=== PATIENT | male | born 1995 | race African-American/Black ===

== ENCOUNTER → 2020-06-22 09:32 | Outpatient (CLI) | payer OTHER, SELFPAY ==
[2020-06-22 10:39] LABS: COVID19 -Nasal RAPID Negative (Negative)
== END ==
PROVIDERS: Visit Provider Surgery
DX: Z01.812 Encounter for preprocedural laboratory examination (principal); Z20.828 Contact with and (suspected) exposure to other viral communicable diseases
CPT/HCPCS: 87635; 99211

== ENCOUNTER 2020-06-23 08:09 | Day surgery (SDC) | payer OTHER, SELFPAY ==
[2020-05-28 13:47] VITALS: BMI 29.1
--- NOTE | 2020-06-23 | PATH_ITS ---
[facility] Accession Number: [id number] . 01 Material submitted: . back - LEFT LOWER BACK . 01 Clinical history: . EXCISION OF LEFT LOWER BACK MASS . 01 Diagnosis: Left Lower Back, Excision: Mature fibroadipose tissue, consistent with lipoma. MRV 06/25/2020 1003 Local . 01 Electronically signed: . Mamadou Gerber MD, Dermatopathologist NPI- [id number] . 01 Gross description: . Received in formalin and labeled with left lower back mass are three pieces of guzman adipose tissue measuring 7.3 x 2.3 x 1.0 to 2.8 x 2.4 x 1.2 cm. All three pieces of tissue are inked, serially sectioned, and submitted in 12 computer help desk representative sections in cassettes A1-A4. Cassettes A1-A4 each contain three slices. (SELINA:[id number]) /MRV 06/24/2020 1511 Local . 01 Pathologist provided ICD-10: D17.9 . 01 CPT . 020312 Performed at: [address] [facility] [address], [place], [place] [id number] MD Conner Frey MD Phone: [phone]
[2020-06-23] MEDS: LACTATED RINGERS 1,000 ML 42 ML IV (08:21)
[2020-06-23 08:27] VITALS: BMI 28.9
--- NOTE | 2020-06-23 08:33 | PM.HP.1 ---
History of Present Illness History of Present Illness Date Patient Seen: 06/23/20 Time Patient Seen: 08:33 Chief complaint: EXCISION OF LEFT LOWER BACK MASS Narrative: This is a 25-year-old man who has had a mass on his left lower back which has been increasing over the past 1 year. It causes him pain and discomfort. He is concerned about the neoplastic potential, and the fact that it seems to be continually enlarging and causing him more pain and discomfort. When he sits or leans against a chair he feels pressure on that area. He has a very physical job, and continued to have discomfort in paresthesias in this area of his back, causing some hesitancy. He denies any radiating pain down his leg or buttock. It has not drained or bled. He has not had any other similar lesions in the past. Nothing has changed with the mass since I saw him in clinic in April. ROS: Positive for joint pain. Thirteen system review is otherwise negative other than as mentioned below and in HPI. PE GENERAL: Well groomed and cooperative. Appears stated age. Answers questions promptly and appropriately. Vital signs noted. HENT: Normocephalic, atraumatic. Hearing intact. EYES: Conjunctiva pink, sclera white, no periorbital swelling. CARDIOVASCULAR: Regular rate. No pedal edema. RESPIRATORY: Non-tachypneic, breathing comfortably on room air. GASTROINTESTINAL: Abdomen soft and non-distended GENITALURINARY: No flank tenderness. MUSCULOSKELETAL: Equal tone and mass bilaterally. Left lower back deep nodular mass, which is tender on palpation. No similar structure on the right side. SKIN: Warm, dry, soft, appropriate color for ethnicity. No other lesions, rashes, or wounds. NEURO: Alert and Oriented X 3. No gross sensory deficits, or cognitive issues. PSYCH: Appropriate affect and mood. Patient History Family & Social History Family History Grandfather Cancer Social History: household members significant other Tobacco & Substance use: Smoking Status Never smoker alcohol intake current Meds Home Medications and Allergies Home Medications Medication Instructions Recorded Confirmed Type biotin 5 mg capsule 5 mg PO DAILY 05/13/20 05/28/20 History omega-3 fatty acids 1,000 mg 1,000 mg PO DAILY 05/13/20 05/28/20 History capsule Allergies Allergy/AdvReac Type Severity Reaction Status Date / Time No Known Drug Allergies Allergy Unverified 05/13/20 10:37 Assessment & Plan Assessment and plan (1) Palpable mass of lower back: Status: Acute (2) Neoplasm of uncertain behavior: Status: Acute Assessment & Plan narrative: Risk of bleeding infection damage to nearby structures need for additional procedures were discussed with the patient. He desires to proceed with removal of the mass. COVID-19 Result date/Date tested (Pos, Neg/Pending): 06/22/20 Time Spent With Patient Time with patient: 15-24 minutes Quality VTE Deep Vein Thrombosis/Pulmonary Embolism Present on Admission: No
[2020-06-23 08:43] VITALS: BP 124/75; PULSE 68; RESP 12; TEMP 37.3; O2SAT 100
[2020-06-23] MEDS: CEFAZOLIN 2 GM/100 ML FROZ.PIGGY IV (08:56)
[2020-06-23] MEDS: BUPIVACAINE 0.5% W/ EPI (PF) 30 ML VIAL INJ (09:20)
[2020-06-23 09:50] VITALS: BP 95/55; PULSE 74; RESP 19; TEMP 36.6; O2SAT 96
[2020-06-23 09:55] VITALS: BP 98/52; PULSE 73; RESP 17; O2SAT 96
--- NOTE | 2020-06-23 09:57 | P.OP_ITS ---
Operative Date/Time/Diagnoses Date of procedure: 06/23/20 Time of procedure: 09:57 Pre-op diagnosis: Left lower back mass Post-op diagnosis: same Procedure & Clinicians Procedure: Excision of left lower back fatty mass Same procedure as scheduled: Yes Indications: Painful mass in the left lower back, uncertain neoplastic potential Surgeon: Zoey Thomas Anesthesia Type: General Operative Notes Findings: 3cm subfascial fatty mass Specimen(s): other (left lower back fatty mass) Estimated Blood Loss (mL): 2 Blood products transfused: none Procedure in detail: The patient was brought to the operating room, placed in right lateral decubitus position on the operating table, and sequential compression devices were placed on both legs and turned on. Appropriate perioperative antibiotics were given. General anesthesia was induced by the anesthesiologist and the patient was intubated with an LMA. The left lower back was then prepped and draped in sterile fashion, and a surgical time-out was conducted. At this point local anesthetic was injected using 0.5% Marcaine with epi, at the site of the planned incision. A 3cm transverse incision was then made in the skin overlying the palpable mass. Dissection was carried down through dermis, subcutaneous fat,and fascia until the fatty mass was reached. Dissection was carried circumferentially around the mass until it was entirely freed. The mass was delivered from the wound and passed off the field. The wound was irrigated and was noted to be hemostatic. The fascia and subcutaneous tissue were closed in layers with running 3-0 Vicryl and the skin was closed with subcuticular Monocryl 4-0. The skin edges were then sealed with Dermabond. This concluded the procedure. The patient was [facility] The patient was then transferred to the postanesthesia care unit in stable condition. He tolerated the procedure well. Needle sponge and instrument counts were correct x2 at the end of the case. Complications: none Post-operative Condition: stable Disposition: PACU
[2020-06-23 10:00] VITALS: BP 105/57; PULSE 83; RESP 11; O2SAT 98
[2020-06-23 10:05] VITALS: BP 118/76; PULSE 86; RESP 11; O2SAT 100
[2020-06-23] MEDS: OXYCODONE IR 5 MG TABLET PO (10:13)
[2020-06-23 10:17] VITALS: BP 115/81; PULSE 76; RESP 14; O2SAT 100
== END 2020-06-23 10:35 | disposition home or self-care (01) ==
PROVIDERS: Referring Provider Surgery; Visit Provider Surgery
PROC: (CPT 21931; principal; 2020-06-23 09:15)
DX: D17.1 Benign lipomatous neoplasm of skin and subcutaneous tissue of trunk (principal)
CPT/HCPCS: 21931; J0690; J1100; J2250; J2405; J2704; J3010